=== PATIENT | male | born 1950 | race Caucasian/White ===

== ENCOUNTER → 2017-08-16 | Outpatient (CLI) | payer MEDICARE, OTHER ==
[~2017-08-16] MED LIST: ALLO-119 PO; MULT-893 PO; MV-M1TAB19 PO; OMEG-11 PO
== END ==
LOC: LAB 09:44
PROVIDERS: ATTEND Urology
DX: R97.20 Elevated prostate specific antigen [PSA] (principal)
CPT/HCPCS: 36415; 84153

== ENCOUNTER → 2018-02-21 | Outpatient (CLI) | payer MEDICARE, OTHER | LOC: LAB 05:47 | PROVIDERS: ATTEND Urology | DX: N52.01 Erectile dysfunction due to arterial insufficiency (principal); N40.1 Benign prostatic hyperplasia with lower urinary tract symptoms | CPT/HCPCS: 36415; 84403 ==

== ENCOUNTER → 2018-03-21 | Outpatient (CLI) | payer MEDICARE, OTHER | LOC: LAB 09:21 | PROVIDERS: ATTEND Urology | DX: R97.20 Elevated prostate specific antigen [PSA] (principal) | CPT/HCPCS: 36415; 84153 ==

== ENCOUNTER → 2018-07-17 | Outpatient (CLI) | payer MEDICARE, OTHER ==
[2018-07-17 08:18] LABS: PLATELET COUNT, AUTOMATED 180 K/uL (150-450)
--- NOTE | 2018-07-17 08:22 | EKG ---
FACILITY: [facility] PATIENT NAME: JANIE DOVE : [id number] MR: [id number]: [id number] EXAM DATE: ORDERING PHYSICIAN: THIERNO HAMILTON TECHNOLOGIST: HANK Cosby Reason : PREOP-SHOULDER Blood Pressure : / mmHG Vent. Rate : 066 BPM Atrial Rate : 066 BPM P-R Int : 194 ms QRS Dur : 090 ms QT Int : 388 ms P-R-T Axes : 045 018 040 degrees QTc Int : 406 ms Sinus rhythm Possible left atrial enlargement Borderline left axis No previous ECGs available Confirmed by ROSETTA VELIZ ([id number] on 07/17/2018 3:57:36 PM Referred By: Confirmed By:ROSETTA VELIZ
== END ==
LOC: LAB 08:00
PROVIDERS: ATTEND Orthopaedic Surgery Hand Surgery
DX: Z01.812 Encounter for preprocedural laboratory examination (principal); Z01.810 Encounter for preprocedural cardiovascular examination; M75.101 Unspecified rotator cuff tear or rupture of right shoulder, not specified as traumatic
CPT/HCPCS: 36415; 82040; 82247; 82310; 82374; 82435; 82565; 82947; 84075; 84132; 84155; 84295; 84450; 84460; 84520; 85025; 93005

== ENCOUNTER → 2018-09-27 | Outpatient (CLI) | payer MEDICARE, OTHER ==
[~2018-09-27] MED LIST changes: +CEPH500C24 PO; +FINA5TAB67 PO; +TAMS0.4C25 PO
== END ==
LOC: LAB 08:37
PROVIDERS: ATTEND Urology
DX: N40.1 Benign prostatic hyperplasia with lower urinary tract symptoms (principal); R97.20 Elevated prostate specific antigen [PSA]
CPT/HCPCS: 36415; 84153